=== PATIENT | female | born 1990 ===

== ENCOUNTER 2019-02-14 09:05 | Emergency (ER) | payer BC, MEDICAID ==
[2019-02-14] MEDS ORDERED: Sodium Chloride 0.9% 1,000 ML ONE (09:56)
[2019-02-14] MEDS ORDERED: Sodium Chloride 0.9% 1,000 ML IV ONE (10:04)
[2019-02-14 10:15] LABS: BASO # 0.1 K/uL (0.0-0.2); BASO % 0.5 % (0.0-2.0); LYMPH # 0.3 K/uL (1.0-4.3); LYMPH % 2.2 % (20.0-40.0); MEAN CELL VOLUME 88.8 fL (81.0-99.0); MEAN CORPUSCULAR HEMOGLOBIN 29.2 pg (27.0-31.0); MEAN CORPUSCULAR HGB CONC 32.9 g/dL (33.0-37.0); MEAN PLATELET VOLUME 9.2 fL (7.2-11.7); MONO # 0.3 K/uL (0.0-0.8); MONO % 1.7 % (0.0-10.0); NEUT # 15.2 K/uL (1.8-7.0); NEUT % 95.6 % (50.0-75.0); PLATELET COUNT 293 K/uL (130-400); RBC 4.78 Mil/uL (3.80-5.20); RED CELL DISTRIBUTION WIDTH 12.9 % (11.5-14.5); WHITE BLOOD COUNT 15.9 K/uL (4.8-10.8)
[2019-02-14 10:33] LABS: ALB/GLOB RATIO 1.4 (1.0-2.1); ALBUMIN 4.7 g/dL (3.5-5.0); ALT/SGPT 9 U/L (9-52); AST/SGOT 27 U/L (14-36); BLOOD UREA NITROGEN 21 mg/dL (7-17); CALCIUM 9.4 mg/dl (8.6-10.4); GFR NON-AFRICAN AMERICAN > 60; LIPASE 49 U/L (23-300)
[2019-02-14 10:37] LABS: SQUAMOUS EPITHIAL 8 /hpf (0-5); URINE BILIRUBIN NEGATIVE (NEGATIVE); URINE BLOOD 2+ (NEGATIVE); URINE CLARITY Hazy (Clear); URINE COLOR Yellow (YELLOW); URINE GLUCOSE (UA) NORMAL (Normal); URINE LEUKOCYTE ESTERASE 2+ Leu/uL (Negative); URINE PROTEIN NEGATIVE (NEGATIVE); URINE UROBILINOGEN NORMAL mg/dL (0.2-1.0)
[2019-02-14 10:40] LABS: HCG,QUALITATIVE URINE NEGATIVE (NEGATIVE)
[2019-02-14 11:01] LABS: BANDS 1 % (0-2); LYMPHOCYTE 2 % (20-40); MONOCYTE 2 % (0-10); NEUTROPHIL 95 % (50-75); PLATELET ESTIMATE NORMAL (NORMAL); TOTAL CELLS COUNTED 100
[2019-02-14 11:02] LABS: ANISOCYTOSIS SLIGHT
--- NOTE | 2019-02-14 11:20 | C.PDOC ---
History Of Present Illness 28 years old female presents to ED for complaints of sudden onset nausea, vomiting, and diarrhea associated with crampy/diffuse abdominal pain that began last night at 9:30PM. Patient reports she ate steak and shrimp for dinner at a restaurant prior to symptoms onset. Denies fever, recent travel, rash, back pain, dysuria, or any other complaints. Time Seen by Provider: 02/14/19 09:31 Chief Complaint (Nursing): GI Problem History Per: Patient History/Exam Limitations: no limitations Onset/Duration Of Symptoms: Hrs Current Symptoms Are (Timing): Still Present Location Of Pain/Discomfort: Diffuse Radiation Of Pain To:: None Quality Of Discomfort: Cramping Associated Symptoms: Nausea, Vomiting, Diarrhea. denies: Fever, Chills, Urinary Symptoms Exacerbating Factors: None Alleviating Factors: None Last Bowel Movement: Today Recent travel outside of the [place]: No Abnormal Vaginal Bleeding: No Past Medical History Reviewed: Historical Data, Nursing Documentation, Vital Signs Vital Signs: Last Vital Signs Temp 98 F 02/14/19 09:08 Pulse 97 H 02/14/19 09:08 Resp 20 02/14/19 09:08 BP 106/74 02/14/19 09:08 Pulse Ox 97 02/14/19 09:08 - Medical History PMH: No Chronic Diseases Surgical History: Tonsillectomy Family History: States: No Known Family Hx - Social History Hx Alcohol Use: Yes Hx Substance Use: No - Immunization History Hx Tetanus Toxoid Vaccination: No Hx Influenza Vaccination: No Hx Pneumococcal Vaccination: No Review Of Systems Except As Marked, All Systems Reviewed And Found Negative. Constitutional: Negative for: Fever, Chills Gastrointestinal: Positive for: Nausea, Vomiting, Abdominal Pain (Diffuse ), Diarrhea. Negative for: Constipation Genitourinary: Negative for: Dysuria Musculoskeletal: Negative for: Back Pain Skin: Negative for: Rash Neurological: Negative for: Weakness, Numbness Physical Exam - Physical Exam Appears: Non-toxic, No Acute Distress Skin: Normal Color, Warm, Dry, No Rash Head: Atraumatic, Normacephalic Eye(s): bilateral: Normal Inspection, PERRL, EOMI Oral Mucosa: Moist Neck: Normal ROM, Supple Chest: Symmetrical, No Tenderness Cardiovascular: Rhythm Regular, No Murmur Respiratory: Normal Breath Sounds, No Rales, No Rhonchi, No Wheezing Gastrointestinal/Abdominal: Soft, No Tenderness Extremity: Normal ROM Extremity: Bilateral: Atraumatic, Normal Color And Temperature, Normal ROM Pulses: Left Radial: Normal, Right Radial: Normal Neurological/Psych: Oriented x3, Normal Speech Gait: Steady ED Course And Treatment - Laboratory Results Result Diagrams: 02/14/19 10:09 02/14/19 10:09 Lab Results: Total Bilirubin 0.7 mg/dL (0.2-1.3) 02/14/19 10:09 AST 27 U/L (14-36) 02/14/19 10:09 ALT 9 U/L (9-52) 02/14/19 10:09 Alkaline Phosphatase 73 U/L (38-126) 02/14/19 10:09 Total Protein 8.0 g/dL (6.3-8.3) 02/14/19 10:09 Albumin 4.7 g/dL (3.5-5.0) 02/14/19 10:09 Globulin 3.3 gm/dL (2.2-3.9) 02/14/19 10:09 Albumin/Globulin Ratio 1.4 (1.0-2.1) 02/14/19 10:09 Lipase 49 U/L (23-300) 02/14/19 10:09 Urine Color Yellow (YELLOW) 02/14/19 10:09 Urine Clarity Hazy (Clear) 02/14/19 10:09 Urine pH 7.0 (5.0-8.0) 02/14/19 10:09 Ur Specific [place] 1.023 (1.003-1.030) 02/14/19 10:09 Urine Protein Negative mg/dL (NEGATIVE) 02/14/19 10:09 Urine Glucose (UA) Normal mg/dL (Normal) 02/14/19 10:09 Urine Ketones 1+ mg/dL (NEGATIVE) H 02/14/19 10:09 Urine Blood 2+ (NEGATIVE) H 02/14/19 10:09 Urine Nitrate Negative (NEGATIVE) 02/14/19 10:09 Urine Bilirubin Negative (NEGATIVE) 02/14/19 10:09 Urine Urobilinogen Normal mg/dL (0.2-1.0) 02/14/19 10:09 Ur Leukocyte Esterase 2+ Lonnie/uL (Negative) H 02/14/19 10:09 Urine WBC (Auto) 30 /hpf (0-5) H 02/14/19 10:09 Urine RBC (Auto) 8 /hpf (0-3) H 02/14/19 10:09 Ur Squamous Epith Cells 8 /hpf (0-5) H 02/14/19 10:09 Urine HCG, Qual Negative (NEGATIVE) 02/14/19 10:09 Urine HCG, Qual Negative (NEGATIVE) 02/14/19 10:09 O2 Sat by Pulse Oximetry: 97 (RA) Pulse Ox Interpretation: Normal Medical Decision Making Medical Decision Making: PE * Pepcid * IV Fluids * Zofran * Blood work * Urinalysis On re-exam, the patient reports improvement of symptoms. Lungs are CTA, heart is RRR, abdomen is soft, non-tender and the patient is tolerating PO well. Patient is ambulatory in the ED with steady gait. Follow up with the medical doctor fabi arriaga 1-2 days. Return if worsened. Disposition - Disposition Referrals: Toni Cruz [Staff Provider] - Disposition: HOME/ ROUTINE Disposition Time: 11:51 Condition: STABLE Additional Instructions: Follow up with the medical doctor within 1-2 days. Return if worsened. Prescriptions: Ciprofloxacin [Cipro] 1 tab PO BID #14 tab Ibuprofen [Motrin] 1 tab PO TID PRN #30 tab PRN Reason: Pain metroNIDAZOLE [Flagyl] 500 mg PO BID #14 tab Ondansetron ODT [Zofran ODT] 1 odt PO BID PRN #6 odt PRN Reason: Nausea/Vomiting Instructions: Urinary Tract Infections in Adults, Food Poisoning Forms: [facility] ([place]), Work Excuse - Clinical Impression Clinical Impression: Food poisoning, UTI (urinary tract infection) - PA / [employer] ATTENDANT / Resident Statement MD/DO has reviewed & agrees with the documentation as recorded. - Scribe Statement The provider has reviewed the documentation as recorded by the Cami Pereira All medical record entries made by the Cami were at my direction and personally dictated by me. I have reviewed the chart and agree that the record accurately reflects my personal performance of the history, physical exam, medical decision making, and the department course for this patient. I have also personally directed, reviewed, and agree with the discharge instructions and disposition.
[2019-02-14 11:31] VITALS: BP 108/68; PULSE 87; RESP 17; TEMP 100.1
[2019-02-14 11:52] VITALS: O2SAT 97
== END 2019-02-14 12:18 | disposition home or self-care (01) ==
LOC: C.ER 09:05
DX: T62.8X1A Toxic effect of other specified noxious substances eaten as food, accidental (unintentional), initial encounter (principal); Y92.89 Other specified places as the place of occurrence of the external cause; N39.0 Urinary tract infection, site not specified
CPT/HCPCS: 80053; 81001; 83690; 84703; 85025; 96361; 96374; 96375; 99283; J2405; J7030